=== PATIENT | female | born 1970 | race Caucasian/White ===

== ENCOUNTER 2018-01-23 15:19 | Emergency (ER) | payer OTHER ==
[2018-01-23 15:37] VITALS: BP 102/69
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
== END 2018-01-23 16:11 | disposition home or self-care (01) ==
LOC: CED 15:19
DX: S16.1XXA Strain of muscle, fascia and tendon at neck level, initial encounter (principal); M25.551 Pain in right hip; M25.552 Pain in left hip; M79.602 Pain in left arm; V13.0XXA Pedal cycle driver injured in collision with car, pick-up truck or van in nontraffic accident, initial encounter; Y93.55 Activity, bike riding; Y92.410 Unspecified street and highway as the place of occurrence of the external cause; Y99.8 Other external cause status
CPT/HCPCS: 72170-PO